=== PATIENT | female | born 1980 | race Caucasian/White ===

== ENCOUNTER 2016-09-11 10:22 | Emergency (ER) | payer OTHER | END 2016-09-11 11:29 | disposition left against medical advice (07) | LOC: FER 10:22 | DX: M54.5 Low back pain (principal); Z53.8 Procedure and treatment not carried out for other reasons ==

== ENCOUNTER 2021-06-26 17:51 | Emergency (ER) | payer OTHER ==
[~2021-06-26 17:51] MED LIST: DITROPAN5 MG PO; ZOFRAN ODT4 MG SL
[2021-06-26 18:26] LABS: BASOPHIL 0.2 % (0-2); EOSINOPHIL 1.2 % (0-5); HCT 38.9 % (37.0-47.0); LYMPHOCYTE 40.5 % (15-48); MCH 29.3 pg (25.0-31.0); MCHC 33.4 g/dL (32.0-36.0); MCV 87.6 fL (78.0-100.0); MONOCYTE 6.6 % (0-12); MPV 9.8 fL (6.0-9.5); NEUTROPHIL 51.2 % (41-80); NRBC 0; PLT 324 K/uL (150-400); RBC 4.44 M/uL (4.20-5.40); RDW 13.3 % (11.5-14.0); WBC 9.9 K/uL (4.0-10.5)
[2021-06-26 18:48] LABS: ALBUMIN 3.9 g/dL (3.4-5.0); BILIRUBIN - TOTAL 0.1 mg/dL (0.2-1.0); CREATININE 0.75 mg/dL (0.51-0.95); GLOBULIN (CALCULATION) 3.4 g/dL; POTASSIUM 3.9 mmol/L (3.5-5.1); TOTAL PROTEIN 7.3 g/dL (6.4-8.2)
== END 2021-06-26 21:30 | disposition left against medical advice (07) ==
LOC: FER 17:51
PROVIDERS: Physician Assistant
DX: R07.89 Other chest pain (principal); R00.2 Palpitations; R11.0 Nausea; R68.83 Chills (without fever); Z88.5 Allergy status to narcotic agent; Z88.8 Allergy status to other drugs, medicaments and biological substances; Z87.891 Personal history of nicotine dependence; Z53.8 Procedure and treatment not carried out for other reasons; Z90.710 Acquired absence of both cervix and uterus; Z85.41 Personal history of malignant neoplasm of cervix uteri; Z98.890 Other specified postprocedural states; Z79.891 Long term (current) use of opiate analgesic
CPT/HCPCS: 36415; 71045; 80053; 84484; 85025; 85379; 93005

== ENCOUNTER 2021-06-28 11:10 | Emergency (ER) | payer OTHER ==
[2021-06-28 11:35] LABS: BASOPHIL 0.4 % (0-2); EOSINOPHIL 1.6 % (0-5); HCT 42.8 % (37.0-47.0); HGB 14.2 g/dl (12.5-16.0); LYMPHOCYTE 37.7 % (15-48); MCH 29.2 pg (25.0-31.0); MCHC 33.2 g/dL (32.0-36.0); MCV 88.1 fL (78.0-100.0); MONOCYTE 6.1 % (0-12); MPV 9.6 fL (6.0-9.5); NEUTROPHIL 53.3 % (41-80); NRBC 0; PLT 323 K/uL (150-400); RBC 4.86 M/uL (4.20-5.40); RDW 13.3 % (11.5-14.0); WBC 6.8 K/uL (4.0-10.5)
[2021-06-28 12:07] LABS: ALBUMIN 4.2 g/dL (3.4-5.0); BILIRUBIN - TOTAL 0.2 mg/dL (0.2-1.0); BUN/CREAT RATIO (CALC) 12.3 RATIO; CREATININE 0.73 mg/dL (0.51-0.95); GLOBULIN (CALCULATION) 3.6 g/dL; POTASSIUM 3.8 mmol/L (3.5-5.1); TOTAL PROTEIN 7.8 g/dL (6.4-8.2)
[2021-06-28] MEDS ORDERED: NITROQUIK SL0.4 MG SL (13:09)
== END 2021-06-28 13:10 | disposition home or self-care (01) ==
LOC: FER 11:10
PROVIDERS: Emergency Medicine
DX: R07.89 Other chest pain (principal); Z88.5 Allergy status to narcotic agent; Z88.8 Allergy status to other drugs, medicaments and biological substances
CPT/HCPCS: 36415; 80053; 84443; 84484; 85025; 85379; 93005